=== PATIENT | female | born 1950 ===

== ENCOUNTER → 2019-01-06 | Outpatient (CLI) | payer MEDICARE ==
[~2019-01-06] MED LIST: CYCL5TAB PO; DENO60DI SQ; HYDR200T5 PO; IOHEXOL 180 MG/ML 10 ML VIAL. ONE; LEVO75TA PO; ZOLP5TAB PO; methylPREDNISolone ACETATE 40 MG/ML VIAL. ONE; methylPREDNISolone ACETATE 80 MG/ML VIAL. ONE
--- NOTE | 2019-01-06 21:12 | PAIN ---
DATE OF SERVICE: 01/06/2019 INITIAL CONSULTATION FOR PAIN CLINIC CHIEF COMPLAINT: Low back and left lower extremity pain. HISTORY OF PRESENT ILLNESS: This is a 68-year-old female who presents with history of pain in the low back and left lower extremity for several months since September about 3 months or so after she was lifting some quilting supplies as she does a lot of sewing hobbies and reports that she listed this as it was heavy, has had some pain within that same day in her low back, left posterior gluteus, posterior thigh and into the anterior thigh, medial thigh and lower leg, sometimes to the ankle. The patient reports that it comes and goes with position, but worse with standing, walking, changing positions affected her ability to walk. She feels that her leg is getting fatigued very significantly. The patient has had no recent MRI scan on this but did have one she reports about a year ago, which showed a herniated disk at the L4 level. The patient is a registered nurse and understands the anatomy and the records of her own. The patient has been taking cyclobenzaprine as well as prednisone taper for 5 days, which did help while she took it, but the pain came back afterwards and also Tylenol, which does help for her arthritis pain as well. The patient has had physical therapy and is currently under physical therapy with [facility] and reports this does help temporarily as well. She is doing exercises and uses a treadmill at home usually daily. The patient reports her disability rate from 0-10, 10 being the worst, is a 6 with family home responsibilities, recreation, occupation, 5 with social activity, 2 with sexual favor 1 with self-care and 0 with life support activities. The patient reports no loss of motor function but significant fatigability with walking with the pain constant, becoming with numbness and radiation to the leg, aching and cramping, changes during the day. PAST MEDICAL HISTORY: Significant for mild hearing loss, Sjogren syndrome, superficial blood clot in the leg, irregular heart rhythm in the past, arthritis and osteopenia. PAST SURGICAL HISTORY: Previous surgeries includes sinus surgery in 2002, cholecystectomy in 1994, cystocele, rectocele with a DARNELL and BSO in 2018, tonsillectomy at age 3, dental extraction and implant years ago. CURRENT MEDICATIONS: Include cyclobenzaprine, probably hydroxychloroquine, levothyroxine and zolpidem. FAMILY HISTORY: Significant for diabetes, heart disease, hypothyroidism and autoimmune diseases. SOCIAL HISTORY: The patient does drink alcohol, 1 drink 2-3 times a week, does not smoke, does not use any illegal, illicit or recreational drugs. She is , lives with her spouse and is currently retired, lives in [place], [place] and has a hobby of sewing and sometimes has very large bulky items such as quilts, which does put a strain on her back and leg. REVIEW OF SYSTEMS: The patient's review of systems is positive for those items mentioned in history of present illness. All systems reviewed and otherwise negative. It is complete, full and well documented on the patient's chart. PHYSICAL EXAMINATION: VITAL SIGNS: The patient's blood pressure 141/82, pulse 85, respirations 16 and temperature 98.7 degrees Fahrenheit. Height is 5 feet 6 inches and weight is 184 pounds. GENERAL: The patient is awake, alert, oriented, appropriate and very pleasant demeanor. HEENT: Head shows normocephalic and atraumatic. Extraocular movements are intact and symmetrical. Oral cavity: Mucous membranes are moist and pink. Dentition is intact. NECK: Shows anterior throat supple without palpable lymphadenopathy noted. Swallow reflex symmetrical. CHEST: Shows normal with inspection. Breath sounds clear to auscultation bilaterally. HEART: Shows S1 and S2 clear. No murmurs auscultated. ABDOMEN: Soft, nontender and nondistended. No palpable organomegaly is noted. No rebound or guarding demonstrated. BACK: Shows spine grossly in the midline. Normal-appearing thoracic kyphosis and lumbar lordotic curvature. Lumbar paraspinous muscle shows symmetrical on inspection, with palpation shows some moderate tenderness diffusely but only diffusely without radiation in the lower lumbar distribution, which is symmetrical. No trigger points. No tenderness over the sacrum or sacroiliac regions over the spinous processes. The patient has good rotational motion of the lumbar spine, both laterally greater than 10 degrees right and left as well as extension greater than 10 degrees, forward flexion at 45 degrees without significant pain reported. EXTREMITIES: Lower extremities show deep tendon reflexes at 1+ in the patellar and tendo-calcaneus tendons. Motor exam is 5/5 with dorsiflexion, extension, quadriceps and hamstring flexion and symmetrical. Peripheral pulses are 1+ posterior tibial. No peripheral edema is noted. Lower extremities are warm and dry to touch, equal in color and appearance. The patient's straight leg raise noted to be positive on the right about 40 degrees, negative on the left. Gaenslen's and Tony's maneuvers are negative bilaterally. The patient is able to stand, stand on her toes without difficulty or loss of balance, walks with a normal-appearing gait for a short distance in the office today, not using any assistive device to ambulate. The patient's skin is warm and dry, good turgor. No edema. No sores, rashes or bruising. IMPRESSION: 1. This is a 68-year-old female with approximate 3-month history of increasing pain, low back and right lower extremity in a radicular fashion. 2. History of herniated disk, L4-L5. 3. Arthritis. 4. Osteopenia. 5. Sjogren syndrome. PLAN: Options were discussed with the patient including conservative medical management, physical therapy, interventional techniques and she would like to proceed with interventional techniques. We discussed a lumbar epidural steroid injection using description as well as anatomical models to describe the procedure. Risks were then discussed including, but not limited to bleeding, infection, possibility of epidural hematoma and subsequent neurological compromise, dural puncture, headaches, spinal cord and/or nerve damage, side effects of steroid medication and poor results regarding pain control. The patient understands and wished to proceed. The patient will return to the clinic in approximately 2 weeks for followup, was counseled as to return appointment, activity level and side effects to be aware of. DIAGNOSES: Lumbar radiculopathy with lumbar degenerative disk disease and lumbar spinal stenosis. PROCEDURE: Lumbar epidural steroid injection, translaminar approach, L4-L5 level using C-arm fluoroscopic guidance under sterile prep and drape using local anesthetic. MEDICATION INJECTED: A total of 120 mg Depo-Medrol plus 10 mL of preservative-free normal saline and 2 mL of Isovue for contrast. CONDITION AT DISCHARGE: Stable. The patient tolerated the procedure well and had no complications. CITLALLI PEMBERTON MD DR: LALI/westley JOB#: [id number] / [id number] YURY Isidro MD
== END | disposition home or self-care (01) ==
LOC: PNCL 10:18
PROVIDERS: ATTEND Anesthesiology
DX: M51.16 Intervertebral disc disorders with radiculopathy, lumbar region (principal); M48.061 Spinal stenosis, lumbar region without neurogenic claudication; M19.90 Unspecified osteoarthritis, unspecified site; M85.80 Other specified disorders of bone density and structure, unspecified site; M35.00 Sjogren syndrome, unspecified; H91.90 Unspecified hearing loss, unspecified ear; Z90.49 Acquired absence of other specified parts of digestive tract; K08.409 Partial loss of teeth, unspecified cause, unspecified class; Z90.710 Acquired absence of both cervix and uterus; Z90.722 Acquired absence of ovaries, bilateral; Z90.79 Acquired absence of other genital organ(s); Z79.899 Other long term (current) drug therapy; Z83.3 Family history of diabetes mellitus; Z82.49 Family history of ischemic heart disease and other diseases of the circulatory system; Z83.49 Family history of other endocrine, nutritional and metabolic diseases; Z72.89 Other problems related to lifestyle
CPT/HCPCS: 62323; J1030; J1040; Q9965

== ENCOUNTER → 2019-01-20 | Outpatient (CLI) | payer MEDICARE ==
--- NOTE | 2019-01-21 05:11 | PAIN ---
DATE OF SERVICE: 01/20/2019 DIAGNOSES: Lumbar radiculopathy with lumbar degenerative disk disease, lumbar spinal stenosis. HISTORY OF PRESENT ILLNESS: The patient is a 68-year-old female who returns for followup status post lumbar epidural steroid injection x 1. The patient reports about 50% improvement overall and her leg is doing much better on the right side, now some pain more noticeable in the back. The patient reports no new motor or sensory deficits. No new bowel or bladder incontinence or other complaints. The patient reports it is aching, tight, tingling, but less radiation into the leg. When it does, radiation anterior thigh and medial thigh. The patient reports it is a 6 on a scale 10 at its worst, 5 on average, 2 at its least and is a 2 today. The patient reports she had been increasing her activity, walking, doing household activities, traveling with greater ability and comfort and sleeping better at night. The patient reports the pain was not awakening her from sleep at this time. PHYSICAL EXAMINATION: VITAL SIGNS: The patient's blood pressure is 137/78, pulse 79, respirations 16, temperature 97.8 degrees Fahrenheit, weight is 180 pounds. GENERAL: The patient is awake, alert, oriented, appropriate, very pleasant demeanor. HEENT: Shows normocephalic, atraumatic. Extraocular movements are intact and symmetrical. Oral cavity: Mucous membranes moist and pink. Dentition is intact. NECK: Shows anterior throat supple without palpable lymphadenopathy noted. Swallow reflex is symmetrical. CHEST: Shows normal on inspection. Breath sounds are clear to auscultation bilaterally. HEART: Shows S1, S2 clear. No murmurs auscultated. ABDOMEN: Soft, nontender, nondistended. No palpable organomegaly is noted. No rebound or guarding demonstrated. BACK: Shows spine grossly in the midline, normal-appearing thoracic kyphosis, some minor flattening of lumbar lordotic curvature. Lumbar paraspinous muscle shows symmetrical on inspection. With palpation shows some mild tenderness in the middle and lower distribution of the paraspinous muscles, more on the right than the left, but present and symmetrical, without atrophy or hypertrophy. The patient has good rotational motion of lumbar spine, both laterally as well as extension and flexion without significant difficulty or pain reported. EXTREMITIES: Lower extremities show deep tendon reflexes at 1+ in the patellar and tendo calcaneus tendons are equal. Motor exam is strong with 5/5 dorsiflexion, extension, quadriceps and hamstring flexion and symmetrical. Peripheral pulses are 1+ posterior tibia. No peripheral edema is noted bilaterally. Options were discussed with the patient. The patient's old chart was reviewed as was her current medication regimen updated. Current review of systems is updated today as well and we will proceed with a second in the series of lumbar epidural steroid injection today with fluoroscopic guidance. Risks were again discussed including, but not limited to bleeding, infection, possibility of epidural hematoma, subsequent neurologic compromise, dural puncture, headache, spinal cord and/or nerve damage, side effects of steroid medication and poor results regarding pain control. The patient understands and wished to proceed. The patient will return to the clinic in approximately 2 weeks for followup, was counseled on return appointment, activity level and side effects to be aware of. DIAGNOSIS: Lumbar radiculopathy with lumbar degenerative disk disease, lumbar spinal stenosis. PROCEDURE: Lumbar epidural steroid injection, translaminar approach L4-L5 level using C-arm fluoroscopic guidance under sterile prep and drape using local anesthetic. MEDICATION INJECTED: A total of 120 mg Depo-Medrol plus 10 mL of preservative-free normal saline and 2 mL of Isovue for contrast. CONDITION AT DISCHARGE: Stable. The patient tolerated procedure well, had no complications. CITLALLI PEMBERTON MD DR: LALI/westley JOB#: [id number] / [id number]
== END | disposition home or self-care (01) ==
LOC: PNCL 09:54
PROVIDERS: ATTEND Anesthesiology
DX: M51.16 Intervertebral disc disorders with radiculopathy, lumbar region (principal); M48.061 Spinal stenosis, lumbar region without neurogenic claudication; Z88.1 Allergy status to other antibiotic agents
CPT/HCPCS: 62323; J1030; J1040; Q9965

== ENCOUNTER → 2019-02-06 | Outpatient (CLI) | payer MEDICARE ==
--- NOTE | 2019-02-06 22:13 | PAIN ---
DATE OF SERVICE: 02/06/2019 DIAGNOSES: 1. Lumbar radiculopathy with lumbar spinal stenosis. 2. Lumbar degenerative disk disease. HISTORY OF PRESENT ILLNESS: The patient is a 68-year-old female who returns for followup status post lumbar epidural steroid injection x 1 ____. The patient reports she did very well, about 85% improvement until the last week or so, the pain began to return in the low back and right lower extremity. The patient reports it is 8-9 on a scale of 10 at its worst, 8-9 on average, 5 at its least and is 8 today. The patient reports that she has been waking from sleep occasionally, not every night, but in general, she believes on the right side. Initially, she increased in distance walking, doing activities at home, traveling with much better ability and comfort. The patient reports no new motor or sensory deficits. Reports the pain now as sharp, tingling, burning, cramping, radiating, shooting into the right leg in the anterior medial aspect of the thigh, lateral thigh and across the low back into the right side, greater than left, especially in the lateral and anterior thigh and knee on the right. No pain on the left side. The patient reports no new motor or sensory deficits, no new bowel or bladder incontinence or other complaints. PHYSICAL EXAMINATION: VITAL SIGNS: The patient's blood pressure 120/70, pulse 90, respirations 16, temperature 98.6 degrees Fahrenheit, weight is 182 pounds. GENERAL: The patient is awake, alert, oriented, appropriate, very pleasant demeanor. HEENT: Head shows normocephalic, atraumatic. Extraocular movements are intact and symmetrical. Oral cavity: Mucous membranes moist and pink. Dentition is intact. NECK: Shows anterior throat supple without palpable lymphadenopathy noted. Swallow reflex symmetrical. CHEST: Shows normal with inspection. Breath sounds clear to auscultation bilaterally. HEART: Shows S1, S2 clear. No murmurs auscultated. ABDOMEN: Soft, nontender, nondistended. No palpable organomegaly is noted. No rebound or guarding demonstrated. BACK: Shows spine grossly in the midline. Normal-appearing thoracic kyphosis and lumbar lordotic curvature. The patient's low back paraspinous musculature shows symmetrical on inspection, on palpation shows some moderate tenderness diffusely, but only diffusely without radiation. The patient shows good rotational motion of lumbar spine, both laterally as well as extension and flexion without difficulty. EXTREMITIES: Lower extremities show deep tendon reflexes 1+ in the patellar and tendo calcaneus tendons are equal. Motor exam is strong with 5/5 dorsiflexion, extension, quadriceps and hamstring flexion symmetrical. Peripheral pulses are 1+ posterior tibia. No peripheral edema is noted bilaterally. Options were discussed with the patient. The patient's old chart was reviewed as was her current medication regimen updated. Current review of systems updated today as well. We will proceed with a second in the series of lumbar epidural steroid injection today with fluoroscopic guidance. Risks were again discussed including, but not limited to bleeding, infection, possibility of epidural hematoma and subsequent neurological compromise, dural puncture, headache, spinal cord and/or nerve damage, side effects of steroid medication and poor results regarding pain control. The patient understands and wished to proceed. The patient will return to clinic in approximately 2 weeks for followup. She was counseled as to return appointment, activity level and side effects to be aware of. DIAGNOSES: 1. Lumbar radiculopathy with lumbar spinal stenosis. 2. Lumbar degenerative disk disease. PROCEDURE: Lumbar epidural steroid injection, translaminar approach at L4-L5 level using C-arm fluoroscopic guidance under sterile prep and drape using local anesthetic. MEDICATION INJECTED: A total of 120 mg Depo-Medrol plus 10 mL of preservative-free normal saline and 2 mL of Isovue for contrast. CONDITION AT DISCHARGE: Stable. The patient tolerated the procedure well, had no complications. CITLALLI PEMBERTON MD DR: LALI/westley JOB#: [id number] / [id number]
== END | disposition home or self-care (01) ==
LOC: PNCL 08:06
PROVIDERS: ATTEND Anesthesiology
DX: M51.16 Intervertebral disc disorders with radiculopathy, lumbar region (principal); M48.061 Spinal stenosis, lumbar region without neurogenic claudication; Z88.1 Allergy status to other antibiotic agents
CPT/HCPCS: 62323; J1030; J1040; Q9965